=== PATIENT | male | born 1995 | race Two or more races ===

== ENCOUNTER 2017-11-06 00:31 | Emergency (ER) | payer OTHER, MEDICAID ==
[2017-11-06] MEDS: KETOROLAC 60 MG INJ IM (02:40)
== END 2017-11-06 03:06 | disposition home or self-care (01) ==
LOC: FTE 00:31
DX: L02.11 Cutaneous abscess of neck (principal); Z87.891 Personal history of nicotine dependence
CPT/HCPCS: 96372; 99284-25

== ENCOUNTER 2018-04-21 01:37 | Emergency (ER) | payer OTHER ==
[2018-04-21] MEDS: HYDROCODONE/APAP (5/325) TAB PO (04:34)
[2018-04-21] MEDS: IBUPROFEN 600 MG TAB PO (04:34)
== END 2018-04-21 05:00 | disposition home or self-care (01) ==
LOC: FTE 01:37
DX: S83.91XA Sprain of unspecified site of right knee, initial encounter (principal); F17.210 Nicotine dependence, cigarettes, uncomplicated; X58.XXXA Exposure to other specified factors, initial encounter; Y92.310 Basketball court as the place of occurrence of the external cause
CPT/HCPCS: 29505; 99283-25

== ENCOUNTER 2018-09-06 16:57 | Emergency (ER) | payer OTHER ==
[2018-09-06] MEDS: LIDOCAINE 1% (MPF) 5 ML VIAL INFIL (19:29)
[2018-09-06] MEDS: IBUPROFEN 600 MG TAB PO (20:32)
== END 2018-09-06 20:37 | disposition home or self-care (01) ==
LOC: FTE 16:57
DX: L02.11 Cutaneous abscess of neck (principal); F17.210 Nicotine dependence, cigarettes, uncomplicated
CPT/HCPCS: 10060; 99283-25